=== PATIENT | male | born 1980 | race Two or more races ===

== ENCOUNTER 2020-03-05 19:52 | Emergency (ER) | payer OTHER ==
[~2020-03-05] VITALS: Ht 180.3 cm; Wt 82.0 kg
[2020-03-05 22:00] VITALS: BP 118/82
== END 2020-03-05 23:16 | disposition home or self-care (01) ==
LOC: ER 19:52
DX: Z03.818 Encounter for observation for suspected exposure to other biological agents ruled out (principal); R06.02 Shortness of breath; R05 Cough
CPT/HCPCS: 71045; 87426; 93005; 99285